=== PATIENT | male | born 1990 ===

== ENCOUNTER 2017-03-24 14:14 | Emergency (ER) | payer OTHER ==
[2017-03-24 14:22] VITALS: BP 121/69
--- NOTE | 2017-03-24 14:47 | UC ---
Back Pain HPI - HPI Summary HPI Summary: The patient comes in today for: 1. Lower back/coccyx area: Onset: 3 days ago. Palliative/provocative: Leaning back in the seat, sitting, make it worse. Standing makes it better. Quality: Ache Region: Middle gluteal cleft. Severity: 8/10 sitting. Time: Constant. Associated symptoms: Event: He states that he fell down stairs on his buttocks--"right on the bone." The stairs were wet and he lost his footing. He did not hit his head. Previous treatment: None. He did not feel as much pain initially. Initially, it was 6/10 and now it is 8/10 * - History of Current Complaint Chief Complaint: UCBackPain Stated Complaint: LOWER BACK Time Seen by Provider: 03/24/17 14:42 Hx Obtained From: Patient - Allergies/Home Medications Allergies/Adverse Reactions: Allergies Allergy/AdvReac Type Severity Reaction Status Date / Time No Known Allergies Allergy Verified 03/24/17 14:22 Home Medications: Home Medications NK [No Home Medications Reported] 03/24/17 [History Confirmed 03/24/17] PMH/Surg Hx/FS Hx/Imm Hx Previously Healthy: Yes Endocrine History Of: Denies: Diabetes, Thyroid Disease, Hyperthyroidism, Hypothyroidism, Dyslipidemia Cardiovascular History Of: Denies: Cardiac Disorders, Hypertension, Pacemaker/ICD, Myocardial Infarction , Congestive Heart Failure, Atrial Fibrillation, Deep Vein Thrombosis, Bleeding Disorders Respiratory History Of: Denies: COPD, Asthma, Bronchitis, Pneumonia, Pulmonary Embolism GI/ History Of: Denies: Gastroesophageal Reflux, Ulcer, Gastrointestinal Bleed, Gall Bladder Disease, Kidney Stones, Diverticulitis, Renal Disease, Urosepsis Neurological History Of: Denies: TIA, CVA, Dementia, Seizures, Migraine Psychological History Of: Denies: Anxiety, Depression, Bipolar Disorder, Schizophrenia, Post Traumatic Stress Disorder Cancer History Of: Denies: Lung Cancer, Colorectal Cancer, Breast Cancer, Prostate Cancer, Cervical Cancer Other History Of: Negative For: HIV, Hepatitis B, Hepatitis C, Anticoagulant Therapy - Surgical History Surgical History: Yes Surgery Procedure, Year, and Place: right knee 2013 - Family History Known Family History: Negative: Cardiac Disease, Hypertension - Social History Occupation: Student Alcohol Use: Daily Substance Use Type: None Smoking Status (MU): Never Smoked Tobacco Review of Systems Constitutional: Negative Skin: Negative Eyes: Negative ENT: Negative Respiratory: Negative Cardiovascular: Negative Gastrointestinal: Negative Genitourinary: Negative Musculoskeletal: Arthralgia All Other Systems Reviewed And Are Negative: Yes Physical Exam Triage Information Reviewed: Yes Appearance: Well-Appearing, No Pain Distress, Well-Nourished Vital Signs: Initial Vital Signs Temp 98.3 F 03/24/17 14:18 Pulse 77 03/24/17 14:18 Resp 14 03/24/17 14:18 BP 121/69 03/24/17 14:18 Pulse Ox 100 03/24/17 14:18 Vital Signs Reviewed: Yes Eyes: Positive: Conjunctiva Clear. Negative: Discharge ENT: Positive: Hearing grossly normal, Other: - Bilateral cerumen buildup--but no canal erythema or edema.. Negative: Pharyngeal erythema, Nasal congestion, Nasal drainage, Tonsillar swelling, Tonsillar exudate Dental: Negative: Gross Decay/Caries @, Dental Fracture @ Neck: Positive: Supple, Nontender, No Lymphadenopathy. Negative: Nuchal Rigidity Respiratory: Positive: Lungs clear, No respiratory distress, No accessory muscle use. Negative: Crackles, Wheezing Cardiovascular: Positive: RRR, No Murmur Abdomen Description: Positive: Nontender, No Organomegaly, Soft Musculoskeletal: Positive: Strength Intact, ROM Intact, No Edema, Other: - He has tenderness to palpation of the upper midline gluteal cleft. However, there are three dimples in the cleft about 1-2 mm in size. Out of two of these there is a purulent flow with pressure to the area. Culture taken Neurological: Positive: Alert, Muscle Tone Normal Psychological: Positive: Age Appropriate Behavior. Negative: Consolable Skin: Positive: Other - Of the upper gluteal cleft, there is no edema, no eccnymosis or abrasion. There is tenderness. No masses.. Negative: rashes, breakdown Diagnostics - Radiology No standard instances Xray Interpretation: No Acute Changes Radiology Interpretation Completed By: Radiologist Back Pain Course/Dx - Course Course Of Treatment: Patient told of his x-ray report. He was told of his treatment options. At this time, he does not want to follow up with a surgeon, but he states that he would like the name of a few of them here in this area. - Differential Dx/Diagnosis Provider Diagnoses: Pilonidal cyst, abscess, draining. Contusion Discharge - Discharge Plan Condition: Stable Disposition: HOME Patient Education Materials: Pilonidal Cyst (ED), Contusion in Adults (ED) Additional Instructions: Please apply warm compresses on the affected area as hot as you can stand for 20 minutes 4-5 times a day while there is drainage. Monitor the level of tenderness and swelling and drainage. If these don't get better and particularly if they get worse, please see a surgeon. Take [id number] medications as needed for pain.
--- NOTE | 2017-03-24 15:26 | RAD ---
Indication: Coccyx region pain post fall 4 days ago. Question palpable cyst at bottom of tailbone on physical exam today. Comparison: None. Technique: AP and lateral views sacrum and coccyx. Report: Bowel contents partially obscures the coccyx on the AP view. No gross cortical disruption or suspicious trabecular irregularity to suggest fracture. Normal articular alignment throughout the [id number]. Unremarkable soft tissue contours. IMPRESSION: Negative radiographic exam of the sacrum and coccyx.
== END 2017-03-24 16:03 | disposition home or self-care (01) ==
LOC: UCCORT 14:14
DX: L05.01 Pilonidal cyst with abscess (principal); S30.0XXA Contusion of lower back and pelvis, initial encounter; W10.9XXA Fall (on) (from) unspecified stairs and steps, initial encounter; Y93.9 Activity, unspecified; Y92.9 Unspecified place or not applicable
CPT/HCPCS: 72220; 87070; 87077; 87186; 87205; 87640; 87641; 99201; G0463